=== PATIENT | male | born 1950 | race Caucasian/White ===

== ENCOUNTER → 2016-07-20 | Outpatient (CLI) | payer MEDICARE ==
[~2016-07-20] VITALS: Ht 175.3 cm; Wt 81.4 kg
[~2016-07-20] MED LIST: HYDR-3713 PO; LIDOCAINE 2% INJ 100 MG/5 ML SDV (FOR ANES.) As Ordered ONE; MIDAZOLAM INJ 2 MG/2 ML VIAL (J2250) As Ordered ONE; NEXI40CA PO; NS 1,000 ML IV SCH; PROPOFOL 200 MG/20 ML VIAL As Ordered ONE
--- NOTE | 2016-07-20 13:20 | ROOR ---
Patient Name: Darnell Schmitt Procedure Date: 07/20/2016 1:06 PM Date of : 1950 Age: 66 Room: [facility] Gender: Male Note Status: Finalized Procedure: Upper GI endoscopy Indications: Heartburn Providers: Brendan RESENDIZ MD Referring MD: Malaika Hanna DO Requesting Provider: Medicines: Monitored Anesthesia Care Complications: No immediate complications. Procedure: Pre-Anesthesia Assessment: - The heart rate, respiratory rate, oxygen saturations, blood pressure, adequacy of pulmonary ventilation, and response to care were monitored throughout the procedure. The Endoscope was introduced through the mouth, and advanced to the second part of duodenum. The upper GI endoscopy was accomplished without difficulty. The patient tolerated the procedure well. Findings: The Z-line was irregular and was found 38 cm from the incisors. This was biopsied with a cold forceps for histology. The examined esophagus was normal. A medium-sized hiatal hernia was present. The entire examined stomach was normal. The examined duodenum was normal. Impression: - Normal esophagus. with Z-line irregular, 38 cm from the incisors. Biopsied. - Normal stomach. Small to medium-sized hiatal hernia. - Normal examined duodenum. Recommendation: - Telephone endoscopist for pathology results in 2 weeks. - Continue present medications. Brendan Resendiz MD Brendan RESENDIZ MD 07/20/2016 1:20:11 PM This report has been signed electronically. Number of Addenda: 0 Note Initiated On: 07/20/2016 1:06 PM Estimated Blood Loss: Estimated blood loss: none.
--- NOTE | 2016-07-20 13:30 | ROOR ---
Patient Name: Darnell Schmitt Procedure Date: 07/20/2016 1:07 PM Date of : 1950 Age: 66 Room: [facility] Gender: Male Note Status: Finalized Procedure: Colonoscopy Indications: High risk colon cancer surveillance: Personal history of colonic polyps, Last colonoscopy: February 2013 Providers: Brendan RESENDIZ MD Referring MD: Malaika Hanna DO Requesting Provider: Medicines: Monitored Anesthesia Care Complications: No immediate complications. Procedure: Pre-Anesthesia Assessment: - The heart rate, respiratory rate, oxygen saturations, blood pressure, adequacy of pulmonary ventilation, and response to care were monitored throughout the procedure. The Colonoscope was introduced through the anus and advanced to the cecum, identified by appendiceal orifice and ileocecal valve. The colonoscopy was performed without difficulty. The patient tolerated the procedure well. The quality of the bowel preparation was adequate. Findings: The perianal and digital rectal examinations were normal. A few medium-mouthed diverticula were found in the sigmoid colon. The entire colon appeared normal on direct and retroflexion views. (EXAM: Complete, PREP: Fair/Adequate) Impression: - Mild diverticulosis in the sigmoid colon. - The entire colon is normal on direct and retroflexion views. - No specimens collected. Recommendation: - Repeat colonoscopy in 5 years for surveillance based on personal history of previous adenomatous polyps. Brendan Resendiz MD Brendan RESENDIZ MD 07/20/2016 1:30:00 PM This report has been signed electronically. Number of Addenda: 0 Note Initiated On: 07/20/2016 1:07 PM Estimated Blood Loss: Estimated blood loss: none.
[2016-07-20 13:55] VITALS: BP 144/81
== END ==
LOC: M OPP 11:03
PROVIDERS: ATTEND Internal Medicine Gastroenterology
DX: Z12.11 Encounter for screening for malignant neoplasm of colon (principal); Z86.010 Personal history of colon polyps; K57.30 Diverticulosis of large intestine without perforation or abscess without bleeding; R12 Heartburn; K22.8 Other specified diseases of esophagus; K44.9 Diaphragmatic hernia without obstruction or gangrene; K20.9 Esophagitis, unspecified; M19.90 Unspecified osteoarthritis, unspecified site
CPT/HCPCS: 43239; 88305; 99156; 99157; G0105; J2250

== ENCOUNTER → 2018-01-26 | Outpatient (CLI) | payer MEDICARE | LOC: M WUC 09:25 | DX: M25.571 Pain in right ankle and joints of right foot (principal) | CPT/HCPCS: 73610 ==

== ENCOUNTER → 2021-06-21 | Outpatient (REF) | payer MEDICARE ==
[~2021-06-21] MED LIST changes: -LIDOCAINE 2% INJ 100 MG/5 ML SDV (FOR ANES.) As Ordered ONE; -MIDAZOLAM INJ 2 MG/2 ML VIAL (J2250) As Ordered ONE; -NS 1,000 ML IV SCH; -PROPOFOL 200 MG/20 ML VIAL As Ordered ONE
[2021-06-23 04:11] LABS: MUMPS VIRUS IgG ANTIBODY 86.8 AU/mL (Immune >10.9); RUBEOLA IgG ANTIBODY >300.0 AU/mL (Immune >16.4)
== END ==
LOC: M LAB REF 16:18
PROVIDERS: ATTEND Registered Nurse
DX: Z02.1 Encounter for pre-employment examination (principal)

== ENCOUNTER → 2021-09-11 | Outpatient (CLI) | payer MEDICARE ==
[~2021-09-11] MED LIST changes: +OMEP40CA5 PO; +PRAV40TA2 PO
== END ==
LOC: M LABSMTC 10:16
PROVIDERS: ATTEND Anesthesiology
DX: Z01.812 Encounter for preprocedural laboratory examination (principal); Z11.52 Encounter for screening for COVID-19

== ENCOUNTER 2021-09-15 10:30 | Day surgery (SDC) | payer MEDICARE ==
[~2021-09-15] VITALS: Ht 175.3 cm; Wt 79.4 kg
[~2021-09-15 10:30] MED LIST changes: +LIDOCAINE 2% 100MG/5ML SDV (FOR ANES.) As Ordered ONE; +NS 1,000 ML IV ONE; +fentaNYL 100 MCG/2 ML INJECTION As Ordered ONE; +propofoL 500 MG/50 ML VIAL As Ordered ONE
[2021-09-15 13:21] VITALS: BP 123/71
== END 2021-09-15 13:23 | disposition home or self-care (01) ==
LOC: M OPP 10:30
PROVIDERS: ATTEND Internal Medicine Gastroenterology
DX: Z12.11 Encounter for screening for malignant neoplasm of colon (principal); Z86.010 Personal history of colon polyps; D12.6 Benign neoplasm of colon, unspecified; K57.30 Diverticulosis of large intestine without perforation or abscess without bleeding; K64.8 Other hemorrhoids; K22.89 Other specified disease of esophagus; K44.9 Diaphragmatic hernia without obstruction or gangrene; R12 Heartburn; Z79.899 Other long term (current) drug therapy
CPT/HCPCS: 43239; 45385; 88305; J3010

== ENCOUNTER → 2022-01-03 | Outpatient (REF) | payer MEDICARE ==
[~2022-01-03] MED LIST changes: -LIDOCAINE 2% 100MG/5ML SDV (FOR ANES.) As Ordered ONE; -NS 1,000 ML IV ONE; -fentaNYL 100 MCG/2 ML INJECTION As Ordered ONE; -propofoL 500 MG/50 ML VIAL As Ordered ONE
[2022-01-03 15:36] LABS: FERRITIN 14 NG/ML (26-388); IRON (FE) 107 UG/DL (65-175)
== END ==
LOC: M LAB REF 15:08
PROVIDERS: ATTEND Registered Nurse
DX: D64.9 Anemia, unspecified (principal)

== ENCOUNTER → 2022-04-04 | Outpatient (REF) | payer MEDICARE ==
[2022-04-04 14:41] LABS: FERRITIN 38.8 NG/ML (10.5-307.3)
== END ==
LOC: M LAB REF 12:40
PROVIDERS: ATTEND Registered Nurse
DX: E61.1 Iron deficiency (principal)

== ENCOUNTER → 2022-10-17 | Outpatient (REF) | payer MEDICARE | LOC: M LAB REF 12:29 | PROVIDERS: ATTEND Physician Assistant Medical | DX: E61.1 Iron deficiency (principal) ==

== ENCOUNTER → 2023-05-17 | Outpatient (REF) | payer MEDICARE ==
[2023-05-17 13:25] LABS: PERCENT SATURATION 14.1 % (19.7-50.0)
== END ==
LOC: M LAB REF 12:21
PROVIDERS: ATTEND Physician Assistant Medical
DX: E61.1 Iron deficiency (principal)

== ENCOUNTER → 2023-11-21 | Outpatient (REF) | payer MEDICARE ==
[2023-11-21 13:09] LABS: PERCENT SATURATION 30.7 % (19.7-50.0)
[2023-11-21 13:10] LABS: FERRITIN 169.3 NG/ML (10.5-307.3)
== END ==
LOC: M LAB REF 12:20
PROVIDERS: ATTEND Physician Assistant Medical
DX: E61.1 Iron deficiency (principal)

== ENCOUNTER → 2024-11-26 | Outpatient (REF) | payer MEDICARE ==
[~2024-11-26] MED LIST changes: -PRAV40TA2 PO; +PRAV40TA85 PO
[2024-11-26 14:02] LABS: IRON (FE) 86.0 UG/DL (65-175); PERCENT SATURATION 31.5 % (19.7-50.0)
== END ==
LOC: M LAB REF 12:43
PROVIDERS: ATTEND Physician Assistant Medical
DX: E61.1 Iron deficiency (principal)

== ENCOUNTER → 2025-02-15 | Outpatient (CLI) | payer MEDICARE | LOC: M PLAIMG 13:24 | PROVIDERS: ATTEND Physician Assistant Medical | DX: M19.021 Primary osteoarthritis, right elbow (principal) ==